=== PATIENT | female | born 1970 | race American Indian/Alaskan Native ===

== ENCOUNTER 2018-04-06 10:23 | Emergency (ER) | payer OTHER ==
[2018-04-06] MEDS ORDERED: DECADRON IM ONE (11:53)
[2018-04-06] MEDS ORDERED: DUONEB *Not for PRN Use IH ONE (11:53)
--- NOTE | 2018-04-06 12:26 | Emergency Department Report ---
ED Asthma HPI - General Chief Complaint: Adult Asthma Stated Complaint: SOB Time Seen by Provider: 04/06/18 11:51 Source: patient Mode of arrival: Ambulatory Limitations: No Limitations - History of Present Illness Initial Comments: This is a 47-year-old female nontoxic, well nourished in appearance, no acute signs of distress presents to the ED with c/o of acute on chronic asthma exacerbation. Patient stated she took her albuterol inhaler today with no relief. Patient denies any cough. Patient denies any sick contact. Patient denies any recent travels, long car, recent hospital stays. Patient denies any calf pain or calf tenderness. Patient denies any chest pain, short of breath, fever, chills, nausea, vomiting, hemoptysis, numbness, tingling, headache or stiff neck. Past medical history includes asthma. Allergies includes PCN. MD Complaint: "asthma attack", wheezing -: Last night Asthma History: childhood onset Severity: mild Context: none known Associated Symptoms: none Treatments Prior to Arrival: inhaled bronchodilator - Related Data Current Asthma Therapy: inhaled bronchodilator Previous Rx's Medication Instructions Recorded Last Taken Type ALBUTEROL Inhaler [ProAir HFA 2 puff IH QID PRN #1 inhalation 04/06/18 Unknown Rx Inhaler] ALBUTEROL NEB's [Proventil 0.083% 2.5 mg IH TID PRN #1 box 04/06/18 Unknown Rx NEBS] Prednisone [predniSONE 10 mg 10 mg PO .TAPER #1 tab.ds.pk 04/06/18 Unknown Rx (6-Day Pack, 21 Tabs)] Allergies Allergy/AdvReac Type Severity Reaction Status Date / Time Penicillins Allergy Swelling Verified 04/06/18 10:40 ED Review of Systems ROS: Stated complaint: SOB Other details as noted in HPI Constitutional: denies: chills, fever Eyes: denies: eye pain, eye discharge, vision change ENT: denies: ear pain, throat pain Respiratory: wheezing. denies: cough, shortness of breath Cardiovascular: denies: chest pain, palpitations Endocrine: no symptoms reported Gastrointestinal: denies: abdominal pain, nausea, diarrhea Genitourinary: denies: urgency, dysuria, discharge Musculoskeletal: denies: back pain, joint swelling, arthralgia Skin: denies: rash, lesions Neurological: denies: headache, weakness, paresthesias Psychiatric: denies: anxiety, depression Hematological/Lymphatic: denies: easy bleeding, easy bruising ED Past Medical Hx - Past Medical History Hx Asthma: Yes - Social History Smoking Status: Never Smoker Substance Use Type: Alcohol - Medications Home Medications: Home Medications Medication Instructions Recorded Confirmed Last Taken Type ALBUTEROL Inhaler [ProAir HFA 2 puff IH QID PRN #1 inhalation 04/06/18 Unknown Rx Inhaler] ALBUTEROL NEB's [Proventil 0.083% 2.5 mg IH TID PRN #1 box 04/06/18 Unknown Rx NEBS] Prednisone [predniSONE 10 mg 10 mg PO .TAPER #1 tab.ds.pk 04/06/18 Unknown Rx (6-Day Pack, 21 Tabs)] ED Physical Exam - General Limitations: No Limitations General appearance: alert, in no apparent distress - Head Head exam: Present: atraumatic, normocephalic - Eye Eye exam: Present: normal appearance Pupils: Present: normal accommodation - ENT ENT exam: Present: mucous membranes moist - Neck Neck exam: Present: normal inspection, full ROM. Absent: tenderness, meningismus, lymphadenopathy - Respiratory Respiratory exam: Present: normal lung sounds bilaterally, wheezes (bilateral upper and lower lobes). Absent: respiratory distress, rales, rhonchi, stridor, chest wall tenderness, accessory muscle use, decreased breath sounds, prolonged expiratory - Cardiovascular Cardiovascular Exam: Present: regular rate, normal rhythm, normal heart sounds. Absent: irregular rhythm, systolic murmur, diastolic murmur, rubs, gallop - GI/Abdominal GI/Abdominal exam: Present: soft, normal bowel sounds - Extremities Exam Extremities exam: Present: normal inspection - Back Exam Back exam: Present: normal inspection - Neurological Exam Neurological exam: Present: alert, oriented X3 - Psychiatric Psychiatric exam: Present: normal affect, normal mood - Skin Skin exam: Present: warm, dry, intact, normal color. Absent: rash ED Course Vital Signs 04/06/18 10:36 Temperature 98.3 F Pulse Rate 104 H Respiratory 17 Rate Blood Pressure 137/87 O2 Sat by Pulse 98 Oximetry - Reevaluation(s) Reevaluation #1: 04/06/18 12:28 Patient is speaking in full sentences with no signs of distress noted. ED Medical Decision Making - Medical Decision Making This is a 47-year-old male that presents with asthma exacerbation. Patient is stable and was examined by me. Chest x-ray has been obtained and dictated by the radiologist within normal limits. Patient is notified of the x-ray report with no questions noted by the patient. Patient did receive DuoNeb and steroids in the ED which patient the symptoms has resolved and subsided. Posttreatment and there is no wheezing upon auscultation. Patient is discharged with albuterol and prednisone. Patient was referred to Follow-up with a primary care doctor in 3-5 days or if symptoms worsen and continue return to emergency room as soon as possible. At time of discharge, the patient does not seem toxic or ill in appearance. No acute signs of distress noted. Patient agrees to discharge treatment plan of care. No further questions noted by the patient. This chart is dictated with using [employer] Critical care attestation.: If time is entered above; I have spent that time in minutes in the direct care of this critically ill patient, excluding procedure time. ED Disposition Clinical Impression: Asthma exacerbation Qualifiers: Asthma severity: mild Asthma persistence: intermittent Qualified Code(s): J45.21 - Mild intermittent asthma with (acute) exacerbation Disposition: DC-01 TO HOME OR SELFCARE Is pt being admited?: No Does the pt Need Aspirin: No Condition: Stable Instructions: Asthma (ED) Additional Instructions: Follow-up with a primary care doctor in 3-5 days or if symptoms worsen and continue return to emergency room as soon as possible. Prescriptions: ALBUTEROL Inhaler [ProAir HFA Inhaler] 2 puff IH QID PRN #1 inhalation PRN Reason: Shortness Of Breath ALBUTEROL NEB's [Proventil 0.083% NEBS] 2.5 mg IH TID PRN #1 box PRN Reason: Wheezing Prednisone [predniSONE 10 mg (6-Day Pack, 21 Tabs)] 10 mg PO .TAPER #1 tab.ds.pk Referrals: PRIMARY CARE, [Primary Care Provider] - 3-5 Days KORINA SOSA MD [Staff Physician] - 3-5 Days [facility] [Outside] - 3-5 Days [facility] [Outside] - 3-5 Days Forms: Work/School Release Form(ED)
--- NOTE | 2018-04-06 12:50 | XRay Report ---
CHEST 2 VIEWS INDICATION: Wheezing. COMPARISON: None similar at this institution. FINDINGS: PA and lateral chest radiographs demonstrate top normal heart size. Normal mediastinal and hilar contours. Clear lungs. Slight thoracic spine degenerative changes. CONCLUSION: No acute disease. Thank you for the opportunity to participate in this patient's care.
[2018-04-06 13:48] VITALS: BP 134/81
== END 2018-04-06 13:46 | disposition home or self-care (01) ==
LOC: ED 10:23
DX: J45.21 Mild intermittent asthma with (acute) exacerbation (principal); Z88.0 Allergy status to penicillin
CPT/HCPCS: 71046; 94640; 96372; 99283; J1100

== ENCOUNTER 2019-01-17 10:39 | Emergency (ER) | payer OTHER ==
[2019-01-17 11:07] LABS: Basophils % (Auto) 0.5 % (0.0-1.8); Eosinophils % (Auto) 0.2 % (0.0-4.3); Hematocrit 42.8 % (30.3-42.9); Hemoglobin 14.6 gm/dl (10.1-14.3); Lymphocytes # (Auto) 1.2 K/mm3 (1.2-5.4); Lymphocytes % (Auto) 13.1 % (13.4-35.0); Mean Corpuscular HGB Conc 34 % (30-34); Mean Corpuscular Volume 88 fl (79-97); Monocytes # (Auto) 0.5 K/mm3 (0.0-0.8); Monocytes % (Auto) 5.6 % (0.0-7.3); Platelet Count 294 K/mm3 (140-440); Red Blood Count 4.87 M/mm3 (3.65-5.03); Red Cell Distribution Width 13.9 % (13.2-15.2)
[2019-01-17 11:29] LABS: Alanine Aminotransferase 41 units/L (7-56); Albumin 4.5 g/dL (3.9-5); BUN/Creatinine Ratio 17; Blood Urea Nitrogen 10 mg/dL (7-17); Calcium 9.3 mg/dL (8.4-10.2); Hemolysis Index 6
[2019-01-17] MEDS ORDERED: ZOFRAN IV ONE ×2 (11:47→17:29)
[2019-01-17] MEDS ORDERED: MORPHINE IV ONE ×2 (11:47→16:04)
--- NOTE | 2019-01-17 11:54 | Emergency Department Report ---
HPI <JE MOSQUERA - Last Filed: 01/17/19 19:31> - HPI HPI: 48-year-old female presents to the emergency department from home with complaint of nausea, vomiting and upper abdominal pain that has been going on since about 3 AM last night. She tried taking a "nausea pill", Dramamine, for symptoms without much relief. She denies any past medical history but does present with elevated blood pressure. She follows up with [facility] for primary care. No recent travel or sick contacts at home. She denies any fever, dysuria, vaginal bleeding or discharge, back pain. <MARCY GASPAR S - Last Filed: 01/18/19 09:03> - General Chief Complaint: Abdominal Pain Time Seen by Provider: 01/17/19 11:11 ED Past Medical Hx <JE MOSQUERA - Last Filed: 01/17/19 19:31> - Past Medical History Hx Asthma: Yes - Surgical History Additional Surgical History: Hysterectomy, C/S - Social History Smoking Status: Never Smoker Substance Use Type: None <MARCY GASPAR - Last Filed: 01/18/19 09:03> - Medications Home Medications: Home Medications Medication Instructions Recorded Confirmed Last Taken Type ALBUTEROL Inhaler (OR & NICU) 2 puff IH QID PRN #1 inhalation 04/06/18 Unknown Rx [ProAir HFA Inhaler] ALBUTEROL NEB's [Proventil 0.083% 2.5 mg IH TID PRN #1 box 04/06/18 Unknown Rx NEBS] Prednisone [predniSONE 10 mg 10 mg PO .TAPER #1 tab.ds.pk 04/06/18 Unknown Rx (6-Day Pack, 21 Tabs)] HYDROcodone/APAP 5-325 [[place] 1 each PO Q6HR PRN #10 tablet 01/17/19 Unknown Rx 5/325] Omeprazole Magnesium [PriLOSEC Otc] 20 mg PO QDAY #30 tablet. 01/17/19 Unknown Rx Ondansetron [Zofran Odt] 4 mg PO Q8HR PRN #12 tab.rapdis 01/17/19 Unknown Rx ED Review of Systems ROS: Stated complaint: D/V Other details as noted in HPI <JE MOSQUERA - Last Filed: 01/17/19 19:31> ROS: Stated complaint: D/V Other details as noted in HPI Constitutional: denies: chills, fever Eyes: denies: eye pain, vision change ENT: denies: ear pain, throat pain Respiratory: denies: cough, wheezing Cardiovascular: denies: chest pain, palpitations Gastrointestinal: abdominal pain, nausea, vomiting Genitourinary: denies: dysuria, discharge Musculoskeletal: denies: back pain, arthralgia Skin: denies: rash, lesions Neurological: denies: headache, weakness <SHEAR,MARCY S - Last Filed: 01/18/19 09:03> Physical Exam - Physical Exam Vital Signs: Vital Signs 01/17/19 01/17/19 01/17/19 10:51 11:19 11:30 Temperature 97.9 F Pulse Rate 114 H Respiratory 18 Rate Blood Pressure 182/128 195/131 191/131 O2 Sat by Pulse 100 Oximetry 01/17/19 01/17/19 01/17/19 11:45 12:09 12:15 Temperature Pulse Rate Respiratory Rate Blood Pressure 185/134 191/131 203/140 O2 Sat by Pulse 94 94 93 Oximetry 01/17/19 01/17/19 01/17/19 12:30 12:45 13:15 Temperature Pulse Rate 107 H 111 H Respiratory 19 21 Rate Blood Pressure 174/121 178/125 183/125 O2 Sat by Pulse 94 92 93 Oximetry 01/17/19 01/17/19 01/17/19 13:30 13:45 14:00 Temperature Pulse Rate 108 H 110 H 112 H Respiratory 19 21 21 Rate Blood Pressure 179/124 178/130 193/162 O2 Sat by Pulse 90 93 92 Oximetry 01/17/19 01/17/19 01/17/19 14:15 14:30 14:45 Temperature Pulse Rate 87 89 90 Respiratory 16 18 17 Rate Blood Pressure 159/118 176/120 166/125 O2 Sat by Pulse 92 91 Oximetry 01/17/19 01/17/19 01/17/19 15:04 15:15 15:47 Temperature Pulse Rate 91 H 90 95 H Respiratory 16 19 19 Rate Blood Pressure 138/90 142/97 166/125 O2 Sat by Pulse 87 93 Oximetry 01/17/19 01/17/19 01/17/19 16:01 16:23 16:31 Temperature Pulse Rate 93 H 96 H Respiratory 16 23 Rate Blood Pressure 169/119 169/119 154/101 O2 Sat by Pulse 89 97 95 Oximetry 01/17/19 01/17/19 01/17/19 16:45 17:01 17:31 Temperature Pulse Rate 94 H 96 H 90 Respiratory 20 21 10 L Rate Blood Pressure 154/101 142/97 138/110 O2 Sat by Pulse 94 91 Oximetry 01/17/19 01/17/19 01/17/19 18:28 18:30 19:00 Temperature Pulse Rate 96 H 91 H 92 H Respiratory 15 25 H Rate Blood Pressure 142/97 126/94 120/84 O2 Sat by Pulse 90 93 Oximetry <DEMETRIJE C - Last Filed: 01/17/19 19:31> - Physical Exam Vital Signs: Vital Signs 01/17/19 10:51 Temperature 97.9 F Pulse Rate 114 H Respiratory 20 Rate Blood Pressure 182/128 O2 Sat by Pulse 100 Oximetry Physical Exam: GENERAL: The patient is well-developed well-nourished. HENT: Normocephalic. Atraumatic. Patient has moist mucous membranes. EYES: Extraocular motions are intact. Pupils equal reactive to light bilaterally. NECK: Supple. Trachea is midline. CHEST/LUNGS: Clear to auscultation. There is no respiratory distress noted. HEART/CARDIOVASCULAR: Regular. There is mild tachycardia. There is no murmur. ABDOMEN: Abdomen is soft. Upper abdominal pain that is reproducible to palpation. No guarding. Patient has normal bowel sounds. Obese habitus. SKIN: Skin is warm and dry. NEURO: The patient is awake, alert, and oriented. The patient is cooperative. The patient has no focal neurologic deficits. The patient has normal speech. MUSCULOSKELETAL: There is no tenderness or deformity. There is no limitation range of motion. There is no evidence of acute injury. <MARCY GASPAR - Last Filed: 01/18/19 09:03> ED Course Vital Signs 01/17/19 01/17/19 01/17/19 10:51 11:19 11:30 Temperature 97.9 F Pulse Rate 114 H Respiratory 18 Rate Blood Pressure 182/128 195/131 191/131 O2 Sat by Pulse 100 Oximetry 01/17/19 01/17/19 01/17/19 11:45 12:09 12:15 Temperature Pulse Rate Respiratory Rate Blood Pressure 185/134 191/131 203/140 O2 Sat by Pulse 94 94 93 Oximetry 01/17/19 01/17/19 01/17/19 12:30 12:45 13:15 Temperature Pulse Rate 107 H 111 H Respiratory 19 21 Rate Blood Pressure 174/121 178/125 183/125 O2 Sat by Pulse 94 92 93 Oximetry 01/17/19 01/17/19 01/17/19 13:30 13:45 14:00 Temperature Pulse Rate 108 H 110 H 112 H Respiratory 19 21 21 Rate Blood Pressure 179/124 178/130 193/162 O2 Sat by Pulse 90 93 92 Oximetry 01/17/19 01/17/19 01/17/19 14:15 14:30 14:45 Temperature Pulse Rate 87 89 90 Respiratory 16 18 17 Rate Blood Pressure 159/118 176/120 166/125 O2 Sat by Pulse 92 91 Oximetry 01/17/19 01/17/19 01/17/19 15:04 15:15 15:47 Temperature Pulse Rate 91 H 90 95 H Respiratory 16 19 19 Rate Blood Pressure 138/90 142/97 166/125 O2 Sat by Pulse 87 93 Oximetry 01/17/19 01/17/19 01/17/19 16:01 16:23 16:31 Temperature Pulse Rate 93 H 96 H Respiratory 16 23 Rate Blood Pressure 169/119 169/119 154/101 O2 Sat by Pulse 89 97 95 Oximetry 01/17/19 01/17/19 01/17/19 16:45 17:01 17:31 Temperature Pulse Rate 94 H 96 H 90 Respiratory 20 21 10 L Rate Blood Pressure 154/101 142/97 138/110 O2 Sat by Pulse 94 91 Oximetry 01/17/19 01/17/19 01/17/19 18:28 18:30 19:00 Temperature Pulse Rate 96 H 91 H 92 H Respiratory 15 25 H Rate Blood Pressure 142/97 126/94 120/84 O2 Sat by Pulse 90 93 Oximetry - Reevaluation(s) Reevaluation #1: 01/17/19 19:25 Patient had a second dose of morphine without significant pain relief and therefore had further improvement after Dilaudid 0.5 mg IV. I discussed her case with surgeon [employer] architect Dr. Sellers and he advised to follow-up in the office within 2 days. At this time I do not feel that ultrasound is warranted given the lack of leukocytosis or elevated LFTs. Patient may follow up as outpatient for further evaluation and management of her gallbladder. She'll be treated symptomatically as per Dr. Gaspar's prescriptions provided a work excuse to give her time for follow-up in improvement - Consultations Consultation #1: 01/17/19 Case was discussed with Dr. max purvis surgeon during ED visit. We feel that ultrasound is not needed at this time given the lack of leukocytosis and elevated LFTs. He recommends follow-up in office in 2 days <JE MOSQUERA - Last Filed: 01/17/19 19:31> Vital Signs 01/17/19 10:51 Temperature 97.9 F Pulse Rate 114 H Respiratory 20 Rate Blood Pressure 182/128 O2 Sat by Pulse 100 Oximetry <MARCY GASPAR - Last Filed: 01/18/19 09:03> ED Medical Decision Making - Lab Data Result diagrams: 01/17/19 10:58 01/17/19 10:58 - Radiology Data Radiology results: report reviewed PROCEDURE: CT angiogram chest with contrast. TECHNIQUE: Computerized tomographic angiography of the chest was performed after the IV injection of iodinated nonionic contrast including image processing. The image data was postprocessed using 2-dimensional multiplanar reformatted (MPR) and 3-dimensional (MIP and/or volume rendered) techniques. Automated exposure control, adjustment of mA and/or kV according to patient size, or iterative reconstruction dose optimization techniques were utilized. CT DOSE LENGTH PRODUCT: 4898.4 mGycm HISTORY: Shortness of breath, elevated d-dimer. COMPARISONS: None. FINDINGS: The trachea and central bronchi appear normal. There is minimal linear opacity in both lower lobes. This likely represents subsegmental atelectasis. The lungs are otherwise clear. There are no pleural effusions. The thoracic aorta has a normal caliber without evidence of dissection. The pulmonary arteries enhance normally. There are no filling defects to indicate pulmonary embolism. There is no mediastinal adenopathy. The heart size is normal. The thoracic skeleton appears intact. IMPRESSION: No significant abnormality. PROCEDURE: CT ABDOMEN PELVIS W CON TECHNIQUE: Computerized axial tomography of the abdomen and pelvis was performed after the IV injection of iodinated nonionic contrast. CT DOSE LENGTH PRODUCT: mGycm HISTORY: Upper abd pain COMPARISONS: None . FINDINGS: The anterior left base demonstrates an area of the assumed scar or atelectasis which is plus minus slightly nodular suggest comparison to prior study or reimaging in 3-6 months also at the posterior lung bases bilaterally there is slightly nodular pleural thickening with assumed scar/chronic change, all of the preceding most likely is related to chronic change but confirmation with comparison to prior study or follow-up in 3-6 months recommended for complete evaluation No focal sites with air bronchograms Small hiatal hernia Thick-walled stomach No free air No free fluid The gallbladder appears slightly thick-walled with plus minus slight enhancement and possible sludge and/or small stones and the common bile duct in the region of the head of pancreas measures greater than 5 mm, given the patient's age and clinical history suggest correlation with abdominal/right upper quadrant sonogram and/or HIDA scan The pancreas is grossly unremarkable Minimally inhomogeneous liver without true focal lesion Plus minus slight prominence of the spleen No adrenal lesion Lobulated symmetrically enhancing kidneys without hydronephrosis The anterior aspect of the left kidney demonstrates a 5 mm possible small cyst comparison to prior study or correlation with sonogram recommended No aortic dissection No aortic aneurysm No extension of bowel as of the abdominal pelvic cavity and no bowel dilatation No inflammatory change around cecum appendix or sigmoid Uterus assumed removed Thick wall bladder suggest correlation with urinalysis Osseous structures demonstrate degenerative changes IMPRESSION: The gallbladder appears slightly thick-walled with plus minus slight enhancement and possible sludge and/or small stones and the common bile duct in the region of the head of pancreas measures greater than 5 mm, given the patient's age and clinical history suggest corre lation with abdominal/right upper quadrant sonogram and/or HIDA scan The anterior left base demonstrates an area of the assumed scar or atelectasis which has a plus minus slightly nodular configuration suggest comparison to prior study or reimaging in 3-6 months also at the posterior lung bases bilaterally there is slightly nodular pleural thickening with assumed scar/chronic change, given the findings in the entirety at the lung bases the preceding is most likely due to chronic change and scar but comparison to prior study or follow-up in 3-6 months to confirm this is recommended No hydronephrosis The anterior aspect of the left kidney demonstrates a 5 mm possible small cyst comparison to prior study or correlation with sonogram recommended Thick walled bladder suggest correlation with urinalysis - Medical Decision Making She will be discharged to follow-up with Gen. surgery as discussed.. She was provided a copy of her CAT scan reports (chest and abd/pelvis) for follow-up of other incidental findings. Positive improvement in pain and symptoms prior to discharge. Positive improvement in blood pressure with pain management. <JE MOSQUERA - Last Filed: 01/17/19 19:31> - Lab Data Result diagrams: 01/17/19 10:58 01/17/19 10:58 - EKG Data -: EKG Interpreted by Me EKG shows normal: sinus rhythm, axis, intervals, QRS complexes, ST-T waves Rate: tachycardia (105 bpm) - EKG Data When compared to previous EKG there are: previous EKG unavailable Interpretation: normal EKG ( with mild tachycardia) - Medical Decision Making This patient presented to the emergency department with a complaint of upper abdominal pain, nausea or vomiting. At first she points to the epigastrium and also started pointing towards what looks like the lower portion of her chest. Labs were mostly unremarkable except for a slightly elevated and equivocal d- dimer. I ordered a CT of the abdomen and pelvis with IV contrast, as well as a CT angiography of the chest. Patient was given nausea medication and pain medication. She presented hypertensive and therefore did not receive much IV fluid but I was able to get her blood pressure down with some antihypertensive medication. The case was signed out to my colleague to follow the CT scan results but I had prepared some discharge instructions including pain and nausea medication for her. It appears that the CT angiography of the chest did not show any signs of an embolism or any other acute process. The CT scan of the abdomen and pelvis showed some gallbladder sludge and some questionable wall thickening but no obvious signs of cholecystitis. General surgery was contacted and the patient was discharged home to follow up outpatient with them. - Differential Diagnosis cholelithiasis, cholecystitis, gastritis, pancreatitis <MARCY GASPAR S - Last Filed: 01/18/19 09:03> Critical care attestation.: If time is entered above; I have spent that time in minutes in the direct care of this critically ill patient, excluding procedure time. <JE MOSQUERA - Last Filed: 01/17/19 19:31> Critical Care Time: No Critical care attestation.: If time is entered above; I have spent that time in minutes in the direct care of this critically ill patient, excluding procedure time. <MACRY GASPAR S - Last Filed: 01/18/19 09:03> ED Disposition Is pt being admited?: No Time of Disposition: 19:30 <DEMETRIJE Ochoa - Last Filed: 01/17/19 19:31> Is pt being admited?: No <MARCY GASPAR Geeta - Last Filed: 01/18/19 09:03> Clinical Impression: Hypertension Qualifiers: Hypertension type: essential hypertension Qualified Code(s): I10 - Essential (primary) hypertension Abdominal pain Qualifiers: Abdominal location: upper abdomen, unspecified Qualified Code(s): R10.10 - Upper abdominal pain, unspecified Nausea & vomiting Qualifiers: Vomiting type: unspecified Vomiting Intractability: non-intractable Qualified Code(s): R11.2 - Nausea with vomiting, unspecified Disposition: TO HOME OR SELFCARE Condition: Stable Instructions: Acute Nausea and Vomiting (ED), Abdominal Pain (ED), Hypertension (ED) Additional Instructions: Please follow up with your primary care physician in the next few days. Return to the emergency Department with any worsening of your symptoms or any acute distress. Prescriptions: HYDROcodone/APAP 5-325 [[place] 5/325] 1 each PO Q6HR PRN #10 tablet PRN Reason: Pain Omeprazole Magnesium [PriLOSEC Otc] 20 mg PO QDAY #30 tablet. Ondansetron [Zofran Odt] 4 mg PO Q8HR PRN #12 tab.rapdis PRN Reason: Nausea Referrals: [facility] [Provider Group] - 3-5 Days MAUREEN SELLERS MD [Staff Physician] - 2-3 Days (General Surgwon follow up within 2 days (by thrusday 01/19). Return if symptoms worsen as indicated by your discharge instructions.) Forms: Work/School Release Form(ED)
--- NOTE | 2019-01-17 12:38 | XRay Report ---
X-RAY ABDOMEN 2 VIEWS: 01/17/19 10:39:00 CLINICAL: Abdominal pain. FINDINGS: Supine upright views demonstrate a normal bowel gas pattern with a large volume of stool in the right colon and in the distal colon and rectum.. No distended small bowel and no air-fluid levels. No pneumoperitoneum. Phleboliths in the pelvis. No mass or suspicious calcifications.The bones and soft tissues are normal. IMPRESSION: Negative abdomen .
[2019-01-17] MEDS ORDERED: NORMODYNE IV ONE (13:35)
[2019-01-17 14:08] LABS: Bilirubin,Urine NEG (Negative); Blood,Urine SM (Negative); Color,Urine Straw (Yellow); Urobilinogen,Urine < 2.0 mg/dL (<2.0); WBC,Urine < 1.0 /HPF (0.0-6.0)
[2019-01-17] MEDS ORDERED: APRESOLINE IV ONE (14:34)
--- NOTE | 2019-01-17 16:47 | Cat Scan Report ---
PROCEDURE: CT angiogram chest with contrast. TECHNIQUE: Computerized tomographic angiography of the chest was performed after the IV injection of iodinated nonionic contrast including image processing. The image data was postprocessed using 2-di mensional multiplanar reformatted (MPR) and 3-dimensional (MIP and/or volume rendered) techniques. Au tomated exposure control, adjustment of mA and/or kV according to patient size, or iterative reconstr uction dose optimization techniques were utilized. CT DOSE LENGTH PRODUCT: 4898.4 mGycm HISTORY: Shortness of breath, elevated d-dimer. COMPARISONS: None. FINDINGS: The trachea and central bronchi appear normal. There is minimal linear opacity in both lower lobes. T his likely represents subsegmental atelectasis. The lungs are otherwise clear. There are no pleural e ffusions. The thoracic aorta has a normal caliber without evidence of dissection. The pulmonary arter ies enhance normally. There are no filling defects to indicate pulmonary embolism. There is no medias tinal adenopathy. The heart size is normal. The thoracic skeleton appears intact. IMPRESSION: No significant abnormality. This document is electronically signed by Tico Busby MD., Jan 17 2019 04:45:14 PM ET
--- NOTE | 2019-01-17 17:07 | Cat Scan Report ---
PROCEDURE: CT ABDOMEN PELVIS W CON TECHNIQUE: Computerized axial tomography of the abdomen and pelvis was performed after the IV inject ion of iodinated nonionic contrast. CT DOSE LENGTH PRODUCT: mGycm HISTORY: Upper abd pain COMPARISONS: None . FINDINGS: The anterior left base demonstrates an area of the assumed scar or atelectasis which is plus minus sl ightly nodular suggest comparison to prior study or reimaging in 3-6 months also at the posterior stone g bases bilaterally there is slightly nodular pleural thickening with assumed scar/chronic change, al l of the preceding most likely is related to chronic change but confirmation with comparison to prior study or follow-up in 3-6 months recommended for complete evaluation No focal sites with air bronchograms Small hiatal hernia Thick-walled stomach No free air No free fluid The gallbladder appears slightly thick-walled with plus minus slight enhancement and possible sludge and/or small stones and the common bile duct in the region of the head of pancreas measures greater t more 5 mm, given the patient's age and clinical history suggest correlation with abdominal/right upper quadrant sonogram and/or HIDA scan The pancreas is grossly unremarkable Minimally inhomogeneous liver without true focal lesion Plus minus slight prominence of the spleen No adrenal lesion Lobulated symmetrically enhancing kidneys without hydronephrosis The anterior aspect of the left kidney demonstrates a 5 mm possible small cyst comparison to prior st udy or correlation with sonogram recommended No aortic dissection No aortic aneurysm No extension of bowel as of the abdominal pelvic cavity and no bowel dilatation No inflammatory change around cecum appendix or sigmoid Uterus assumed removed Thick wall bladder suggest correlation with urinalysis Osseous structures demonstrate degenerative changes IMPRESSION: The gallbladder appears slightly thick-walled with plus minus slight enhancement and possible sludge and/or small stones and the common bile duct in the region of the head of pancreas measures greater t more 5 mm, given the patient's age and clinical history suggest correlation with abdominal/right upper quadrant sonogram and/or HIDA scan The anterior left base demonstrates an area of the assumed scar or atelectasis which has a plus minus slightly nodular configuration suggest comparison to prior study or reimaging in 3-6 months also at the posterior lung bases bilaterally there is slightly nodular pleural thickening with assumed scar/c hronic change, given the findings in the entirety at the lung bases the preceding is most likely due to chronic change and scar but comparison to prior study or follow-up in 3-6 months to confirm this i s recommended No hydronephrosis The anterior aspect of the left kidney demonstrates a 5 mm possible small cyst comparison to prior st udy or correlation with sonogram recommended Thick walled bladder suggest correlation with urinalysis This document is electronically signed by Ryder Betancourt MD., Jan 17 2019 05:05:36 PM ET
[2019-01-17] MEDS ORDERED: ZOFRAN ONE (17:25)
[2019-01-17] MEDS ORDERED: ZOFRAN IM ONE (17:28)
[2019-01-17] MEDS ORDERED: DILAUDID IV ONE (17:31)
[2019-01-17 19:38] VITALS: BP 124/84
== END 2019-01-17 19:47 | disposition home or self-care (01) ==
LOC: ED 10:39
DX: I10 Essential (primary) hypertension (principal); R10.10 Upper abdominal pain, unspecified; R11.2 Nausea with vomiting, unspecified; J45.909 Unspecified asthma, uncomplicated; Z90.710 Acquired absence of both cervix and uterus; Z88.0 Allergy status to penicillin
CPT/HCPCS: 36415; 71275; 74019; 74177; 80053; 81001; 84484; 85025; 85379; 93005; 93010; 96374; 96375; 96376; 99284; J1170; J2270; J2405; Q9967